=== PATIENT | male | born 1965 | race Caucasian/White ===

== ENCOUNTER 2018-09-23 15:41 | Outpatient (CLI) | payer BC ==
--- NOTE | 2018-09-23 19:00 | MRI ---
MRI LEFT SHOULDER WITHOUT CONTRAST: 09/23/18 HISTORY: M25.512, left shoulder pain. COMPARISON: None. FINDINGS: BICEPS TENDON: Extra-articular biceps tendon is intact. Mild intra-articular tendinosis. LABRUM: There is tear throughout the superior labrum is seen to the posterior superior and posterior labrum a s well as the posterior inferior labrum. The anterior inferior labrum is nothing but scar tissue and osteophyte formation. CARTILAGE: High grade chondral thinning throughout the glenoid as well as multifocal high grade cartilage frayin g throughout the humeral head. ROTATOR CUFF: High grade tendinosis infraspinatus tendon with undersurface partial tearing. No full thickness perfo ration. Mild undersurface partial tearing 25 to 30% of the supraspinatus. Mild tendinosis subscapular is. BONES: There are large osteophyte formation at the glenoid as well as the humeral head/neck. There is an os acromiale, type B with persistent synchondrosis within the preacromion and mesoacromion. There is abnormal sclerosis and edema in the synchondrosis. SOFT TISSUES: There is loss of normal subcoracoid fat and synovitis in the rotator interval. There is also thickeni ng axillary pouch inferior glenohumeral ligament. There is a small subacromial subdeltoid bursa effus ion. MUSCLES: The muscle signal and bulk is normal. IMPRESSION: 1. Extensive tearing throughout the superior as well as posterior and posterior inferior labrum. The anterior inferior labrum is predominantly scar as well as osteophyte formation. 2. 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 3. Loss of normal subcoracoid fat with synovitis of rotator interval as well as thickening of th e axillary pouch can be seen with capsulitis in the correct clinical setting. 4. Mild undersurface partial tearing less than 30% of the supraspinatus tendon without a full th ickness perforation. 5. The muscle bulk is normal. There is some interstitial delamination of the infraspinatus tendo n with myotendinous junction cyst. POS: CET
== END 2018-09-23 15:42 | disposition home or self-care (01) ==
LOC: SCSMRI 15:41
PROVIDERS: ATTEND Orthopaedic Surgery
DX: M25.512 Pain in left shoulder (principal); S43.402A Unspecified sprain of left shoulder joint, initial encounter; M75.102 Unspecified rotator cuff tear or rupture of left shoulder, not specified as traumatic; M67.814 Other specified disorders of tendon, left shoulder; M65.812 Other synovitis and tenosynovitis, left shoulder; M25.712 Osteophyte, left shoulder; R60.0 Localized edema

== ENCOUNTER 2020-04-30 06:10 | Day surgery (SDC) | payer BC ==
[2020-04-30] MEDS ORDERED: Bupivacaine PF 0.5% 30 ML VIAL ONE (06:19)
[2020-04-30] MEDS ORDERED: Betamet Acet/Betamet Na Ph 30 MG/5 ML VIAL ONE (06:19)
[2020-04-30] MEDS ORDERED: Bacitracin Zinc Ointment 30 gm TUBE ONE (06:19)
[2020-04-30] MEDS ORDERED: Sodium Chloride 0.9% 10 ML ONE (06:19)
[2020-04-30] MEDS ORDERED: Midazolam HCl 2 mg/2 ml Vial ONE ×2 (07:12→07:33)
[2020-04-30] MEDS ORDERED: Fentanyl 100 MCG/2 ML VIAL ONE ×2 (07:12→07:33)
[2020-04-30 07:52] LABS: Bacteria/HPF None Seen HPF (None Seen); Bilirubin Negative (Negative); Blood, Urine Negative (Negative); Clarity Clear (Clear); Glucose, Urine (Dipstick) Normal (Negative); Ketone, Urine Negative (Negative); Leukocyte Negative Leu/uL (Negative); Nitrite Negative (Negative); Protein, Urine (Dipstick) 10 mg/dL (Neg-Trace); RBC/HPF 0-3 HPF (0-3); Specific Gravity, Urine 1.029 (1.002-1.036); Squamous Epithelial None Seen HPF (0-3); Urobilinogen Normal mg/dL (Less than 2); WBC/HPF 0-3 HPF (0-3); pH, Urine 5.5 (5.0-9.0)
[2020-04-30] MEDS ORDERED: Bupivacaine HCl 0.5%/Epinephrine 1:200,000/PF 30 ml Vial ONE (09:54)
[2020-04-30] MEDS ORDERED: PROPOFOL 200 MG/20 ML VIAL ONE (09:54)
[2020-04-30] MEDS ORDERED: Lidocaine 1% PF 5 ML VIAL ONE (09:54)
[2020-04-30] MEDS ORDERED: Ondansetron PF 4 MG/2 ML Vial ONE (09:54)
[2020-04-30] MEDS ORDERED: Dexamethasone 20 MG/5 ML VIAL ONE (09:54)
[2020-04-30] MEDS ORDERED: Acetaminophen 500 MG TAB ONE (11:54)
--- NOTE | 2020-04-30 12:50 | RAD ---
EXAM: 3 views of the right hand COMPARISON: None HISTORY: Arthroplasty of the middle finger FINDINGS/IMPRESSION: Limited intraoperative fluoroscopic views of the right hand shows lucency of the region of the middle finger metacarpophalangeal joint which may be from an arthroplasty.
--- NOTE | 2020-05-01 10:52 | OP ---
DATE OF PROCEDURE: 04/30/2020 PREOPERATIVE DIAGNOSES: 1. Right middle finger A1 aramis triggering. 2. Right middle finger osteoarthritis. 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 A very tight A1 aramis with early ganglion formation. PROCEDURES PERFORMED: 1. Right middle finger A1 aramis release. 2. Right middle finger metacarpophalangeal joint arthroplasty with silastic implant, Janes [place] Martin type, size 5. ESTIMATED BLOOD LOSS: 10 mL. TOURNIQUET TIME: Six to seven minutes. ANESTHESIA: General LMA augmented by preoperative one day single block of the upper extremity. DESCRIPTION OF PROCEDURE: After successful anesthesia listed above, the limb prepped and draped. We obtained a time-out appropriately and consent was done for the correct side. The patient then had the limb prepped and draped. Time-out had been confirmed. We then outlined an incision along his MP joint flexion crease for the long finger and a zigzag incision going radial to the MP joint and the metacarpal head, centered on this joint 3 cm on either side. The patient had the palmar incision developed first with the tourniquet inflated and carried through skin and subcutaneous tissue. Identified the neurovascular bundle, retracted from the center of field had revealed very thick A1 aramis with early 3 mm ganglion. We excised the ganglion as part of the release of the A1 aramis. We inspected the volar plate, which was intact with no ganglion or masses. I placed 2 mL Celestone here and closed this wound with interrupted 4-0 nylon in a simple pattern. We then approached the metacarpophalangeal joint through this incision and carried through skin and subcutaneous tissue. Dilated soft tissue off the radial sagittal band and then released it, tagging it, leaving a 2 mm edge still attached to the tendon for repair. We also released the proximal half of the intrinsics. We then performed capsulotomy with partial capsulectomy, exposed the collaterals and then flexed the joint completely to 110 degrees. Protecting the collaterals, we made a box type cut with a saw in frontal and sagittal plane, removing the entire chondral surface and then because there was such osteophytes around, the collaterals were released and completely removed the osteophytes and tagged the collaterals with 3-0 Prolene using Landry suture technique. We had removed the entire chondral surface including the posterior portion of the base of the metacarpal head, we then made a 2 mm chondral cut on the proximal phalanx, removing down to some soft bone. Used a og to establish the subcortical bone surface in the center of the proximal phalanx base and then began broaching. We started with a broach, used C-arm, satisfactory in the center. Once we did this, we then progressively broached all the way from a size 2 to a size 5, which was a good fit for this patient. We then placed the trial prosthesis and it was very stable and at 100 degrees of flexion, it did not dislodge. The patient had the permanent size 5 brought into the field, soaked in normal saline for 2 minutes, and then placed. It had the same stability. Before placing that, we had drilled the drill holes to reattach the collaterals back to bone using the 3-0 Prolene and this was accomplished with the finger in neutral position medial and lateral and at 45 degrees of flexion. The patient then had easily 110 degrees of flexion and full extension passively. Radiographs confirmed this and the C-arm left the area. We then covered the soft tissue around metacarpal head with a small amount of capsule, closed the retinaculum with an interrupted Prolene in a [id number] pattern as well as the extensor castillo. Then, there was no subluxation of the extensor mechanism. We obtained hemostasis with tourniquet deflated, closed subcutaneous tissue with a running 4-0 Monocryl and then a 4-0 nylon interrupted simple pattern. The patient left the operating room with a bulky dressing, and digits in extension of MP joint. No evidence of anesthetic or operative complication with a pink digit. Job ID: [id number]
== END 2020-04-30 12:45 | disposition home or self-care (01) ==
LOC: SDC 06:10
PROVIDERS: ATTEND Orthopaedic Surgery Hand Surgery
PROC: 0LN70ZZ Release Right Hand Tendon, Open Approach (ICD-10-PCS; principal; 2020-04-30)
PROC: 0RRW0JZ Replacement of Right Finger Phalangeal Joint with Synthetic Substitute, Open Approach (ICD-10-PCS; principal; 2020-04-30)
DX: M19.041 Primary osteoarthritis, right hand (principal); M65.331 Trigger finger, right middle finger; K21.9 Gastro-esophageal reflux disease without esophagitis; Z79.1 Long term (current) use of non-steroidal anti-inflammatories (NSAID); Z79.899 Other long term (current) drug therapy; Z88.6 Allergy status to analgesic agent
CPT/HCPCS: 76000; 81001; C1776; J0670; J0690; J0702; J1100; J2250; J2405; J2704; J3010; J3490; S0020

== ENCOUNTER 2024-08-20 17:42 | Inpatient (IN) | payer BC ==
[2024-08-20] MEDS ORDERED: Acetaminophen 325 MG TAB PO PRN (18:37)
[2024-08-20] MEDS: Sodium Chloride 0.9% 1,000 ML IV SCH (20:05)
[2024-08-20] MEDS: Dicyclomine 20 MG TAB PO SCH (20:05)
[2024-08-20 20:36] VITALS: BMI 29.7
[2024-08-20] MEDS: Acetaminophen 500 MG TAB PO SCH (23:13)
[2024-08-21] MEDS: Lidocaine 2% Viscous Solution 20 ML, Aluminum & Magnesium Hydroxide 30 ML, Donnatal Eli... SSW SCH (00:13)
[2024-08-21] MEDS: metroNIDAZOLE 500 MG in Premix 1 BAG IVPB SCH (00:18)
[2024-08-21] MEDS: Ciprofloxacin Lactate/D5W 400 MG in Premix 1 BAG IVPB SCH (04:46)
[2024-08-21 05:17] LABS: Hematocrit 44.9 % (42.0-52.0); Hemoglobin 15.4 g/dL (14.0-18.0); Mean Corpuscular HGB CONC 34.3 g/dL (32.0-36.0); Mean Corpuscular Hemoglobin 31.5 pg (27.0-31.0); Mean Corpuscular Volume 91.8 fL (78.0-98.0); Mean Platelet Volume 9.9 fL (7.4-10.4); Platelet Count 147 10x3/uL (130-400); RBC Distribution Width 17.8 % (11.5-14.5); Red Blood Cell (RBC) Count 4.89 mill/uL (4.70-6.10)
[2024-08-21 05:31] LABS: Anion Gap 14 mmol/L (10-20); BUN (Urea Nitrogen) 16 mg/dL (8.4-25.7); Calc. Creatinine Clearance 136 mL/min (70-130); Calcium 8.2 mg/dL (7.8-10.44); Carbon Dioxide 22 mmol/L (22-29); Chloride 103 mmol/L (98-107); Estimated GFR 99; Glucose 115 mg/dL (70-105); Magnesium 1.7 mg/dL (1.6-2.6); Phosphorus 3.2 mg/dL (2.3-4.7); Potassium 3.2 mmol/L (3.5-5.1); Sodium 136 mmol/L (136-145)
[2024-08-21 05:48] LABS: Band 32 % (5-11); Eosinophils 1 % (0-10); Large Platelets 6.6 % (0-5); Lymphocytes 20 % (21-51); Monocytes 31 % (0-10); Myelocyte 1 % (0-0); Neutrophil 9 % (42-75); Platelet Adequacy Comment Platelets Normal; Polychromasia SLIGHT = 2-3 cells HPF (0-2); Promyelocytes 4 % (0-0); Reactive Lymphocytes 2 % (0-10)
[2024-08-21] MEDS: Glycopyrrolate 0.4 MG/ 2 ML VIAL SLOW IVP SCH ×2 (06:29→22:17)
[2024-08-21] MEDS: Levothyroxine Sodium 100 MCG TAB PO SCH (06:31)
[2024-08-21] MEDS: Ondansetron ODT 4 MG TAB PO PRN (06:35)
[2024-08-21] MEDS: Enoxaparin 40 MG (0.4 mL) SYRINGE SC SCH (08:38)
[2024-08-21] MEDS: Pancrelipase DR 12,000 1 CAP PO SCH (08:38)
[2024-08-21] MEDS: Metamucil PACK PO SCH (08:38)
[2024-08-21] MEDS: Multivitamin W/ Minerals 1 TAB PO SCH (08:39)
[2024-08-21] MEDS: Famotidine/PF 20 mg/2ml Vial SLOW IVP SCH (08:39)
[2024-08-21] MEDS: Ascorbic Acid 500 mg Chewable Tablet PO SCH (08:39)
[2024-08-21] MEDS: Cyanocobalamin (Vitamin B-12) 1,000 MCG TAB PO SCH (08:39)
[2024-08-21] MEDS: Potassium Chloride 20 MEQ TAB PO SCH (09:38)
[2024-08-21 12:24] LABS: Influenza A by NAA Not Detected (NotDetected); Influenza B by NAA Not Detected (NotDetected); SARS-CoV-2 NAA Rapid Test Not Detected (NotDetected)
[2024-08-21 12:56] LABS: Campy jejuni + coli by PCR Negative (Negative); STEC Shiga Toxin 1+2 Negative (Negative); Salmonella spp. by PCR Negative (Negative); Shigella spp + EIEC by PCR Negative (Negative)
[2024-08-21 14:55] VITALS: BMI 29.7
[2024-08-21] MEDS: Dicyclomine 10 MG CAP PO SCH (16:36)
[2024-08-21] MEDS: Ondansetron PF 4 MG/2 ML Vial IVP PRN (18:36)
[2024-08-21] MEDS: Tamsulosin HCl 0.4 MG CAP PO SCH (20:31)
[2024-08-21] MEDS ORDERED: Melatonin 3 MG TAB PO PRN (21:38)
[2024-08-22 05:15] LABS: Hematocrit 40.3 % (42.0-52.0); Hemoglobin 14.2 g/dL (14.0-18.0); Mean Corpuscular HGB CONC 35.2 g/dL (32.0-36.0); Mean Corpuscular Hemoglobin 32.5 pg (27.0-31.0); Mean Corpuscular Volume 92.2 fL (78.0-98.0); Mean Platelet Volume 9.8 fL (7.4-10.4); Platelet Count 142 10x3/uL (130-400); RBC Distribution Width 17.2 % (11.5-14.5); Red Blood Cell (RBC) Count 4.37 mill/uL (4.70-6.10)
[2024-08-22 05:42] LABS: Band 7 % (5-11); Lymphocytes 21 % (21-51); Monocytes 2 % (0-10); Neutrophil 65 % (42-75); Plasma Cells 0 % (0-0); Platelet Adequacy Comment Appears Adequate; Reactive Lymphocytes 5 % (0-10); Total Cell Count 100
[2024-08-22 05:47] LABS: Anion Gap 12 mmol/L (10-20); BUN (Urea Nitrogen) 10 mg/dL (8.4-25.7); Calc. Creatinine Clearance 154 mL/min (70-130); Carbon Dioxide 21 mmol/L (22-29); Chloride 104 mmol/L (98-107); Estimated GFR 103; Glucose 101 mg/dL (70-105); Potassium 3.2 mmol/L (3.5-5.1); Sodium 134 mmol/L (136-145)
[2024-08-22] MEDS: Magnesium 2 GM/50 ML(in water) 2 GM in Premix 1 BAG IVPB SCH (06:06)
[2024-08-22] MEDS: Potassium Chloride 20 MEQ in Premix 1 BAG IVPB SCH (06:36)
[2024-08-22 07:16] LABS: Bacteria/HPF None Seen HPF (None Seen); Bilirubin Negative (Negative); Blood, Urine Negative (Negative); CAUTI Indications for Culture Dysuria,urgency,freq; Clarity Clear (Clear); Glucose, Urine (Dipstick) Normal (Negative); Ketone, Urine Negative (Negative); Leukocyte Negative Leu/uL (Negative); Nitrite Negative (Negative); Protein, Urine (Dipstick) 20 mg/dL (Neg-Trace); RBC/HPF 0-3 HPF (0-3); Squamous Epithelial 0-3 HPF (0-3); Urobilinogen Normal mg/dL (Less than 2); WBC/HPF 0-3 HPF (0-3); pH, Urine 5.5 (5.0-9.0)
[2024-08-22 07:18] LABS: Specific Gravity, Urine 1.056 (1.002-1.036)
[2024-08-22 07:19] LABS: Urine Culture Reflex No No
[2024-08-22] MEDS: Potassium Chloride 40 MEQ in Sodium Chloride 0.9% 250 ML 250 ML IVPB SCH (08:26)
[2024-08-22] MEDS: Potassium Chloride 20 MEQ TAB PO SCH ×2 (08:54→16:18)
[2024-08-22] MEDS: Lidocaine 4% Topical Sol 50 ML BOT TOP SCH (09:53)
[2024-08-22] MEDS: HYDROcodone/Acetaminophen 5/325 mg Tablet PO PRN (10:50)
[2024-08-22] MEDS: Glycopyrrolate 0.4 MG/ 2 ML VIAL SLOW IVP PRN (12:25)
[2024-08-22] MEDS: Lactated Ringer's 1,000 ML IV SCH (15:52)
[2024-08-22] MEDS: Famotidine/PF 20 mg/2ml Vial SLOW IVP SCH (20:22)
[2024-08-23 05:32] LABS: Hemoglobin 13.8 g/dL (14.0-18.0); Mean Corpuscular HGB CONC 35.4 g/dL (32.0-36.0); Mean Corpuscular Hemoglobin 32.2 pg (27.0-31.0); Mean Corpuscular Volume 90.9 fL (78.0-98.0); Mean Platelet Volume 9.1 fL (7.4-10.4); Platelet Count 129 10x3/uL (130-400); RBC Distribution Width 17.1 % (11.5-14.5); Red Blood Cell (RBC) Count 4.29 mill/uL (4.70-6.10)
[2024-08-23 05:46] LABS: ALT (SGPT) 14 U/L (8-55); AST (SGOT) 14 U/L (5-34); Albumin 2.7 g/dL (3.5-5.0); Alkaline Phosphatase 54 U/L (40-110); Anion Gap 10 mmol/L (10-20); BUN (Urea Nitrogen) 7 mg/dL (8.4-25.7); Bilirubin, Total 1.1 mg/dL (0.2-1.2); Calc. Creatinine Clearance 167 mL/min (70-130); Calcium 7.9 mg/dL (7.8-10.44); Carbon Dioxide 24 mmol/L (22-29); Chloride 103 mmol/L (98-107); Estimated GFR 105; Globulin 2.6 g/dL (2.4-3.5); Glucose 98 mg/dL (70-105); Potassium 3.7 mmol/L (3.5-5.1); Protein, Total 5.3 g/dL (6.0-8.3); Sodium 133 mmol/L (136-145)
[2024-08-23 06:18] LABS: Band 31 % (5-11); Eosinophils 3 % (0-10); Lymphocytes 21 % (21-51); Metamyelocyte 1 % (0-0); Monocytes 19 % (0-10); Neutrophil 24 % (42-75); Platelet Adequacy Comment Platelets Normal; Polychromasia SLIGHT = 2-3 cells HPF (0-2); Reactive Lymphocytes 2 % (0-10); Smudge Cells 12.7 %
[2024-08-23] MEDS: Dicyclomine 10 MG CAP PO PRN (09:10)
[2024-08-23] MEDS: HYDROcodone/Acetaminophen 5/325 mg Tablet PO PRN (12:17)
[2024-08-23] MEDS: Loperamide HCl 2 MG CAP PO SCH (16:52)
[2024-08-23] MEDS ORDERED: Preparation H Ointment 57 gram tube TOP PRN (21:00)
[2024-08-24 04:59] LABS: Hematocrit 39.2 % (42.0-52.0); Hemoglobin 13.6 g/dL (14.0-18.0); Mean Corpuscular HGB CONC 34.7 g/dL (32.0-36.0); Mean Corpuscular Hemoglobin 31.9 pg (27.0-31.0); Mean Corpuscular Volume 91.8 fL (78.0-98.0); Mean Platelet Volume 9.3 fL (7.4-10.4); Platelet Count 136 10x3/uL (130-400); RBC Distribution Width 16.9 % (11.5-14.5); Red Blood Cell (RBC) Count 4.27 mill/uL (4.70-6.10)
[2024-08-24 05:09] LABS: ALT (SGPT) 14 U/L (8-55); AST (SGOT) 17 U/L (5-34); Albumin 2.7 g/dL (3.5-5.0); Alkaline Phosphatase 56 U/L (40-110); Anion Gap 10 mmol/L (10-20); BUN (Urea Nitrogen) 4 mg/dL (8.4-25.7); Bilirubin, Total 0.7 mg/dL (0.2-1.2); Calc. Creatinine Clearance 160 mL/min (70-130); Calcium 8.2 mg/dL (7.8-10.44); Carbon Dioxide 24 mmol/L (22-29); Chloride 104 mmol/L (98-107); Estimated GFR 104; Globulin 2.6 g/dL (2.4-3.5); Glucose 101 mg/dL (70-105); Potassium 3.3 mmol/L (3.5-5.1); Protein, Total 5.3 g/dL (6.0-8.3); Sodium 135 mmol/L (136-145)
[2024-08-24 05:26] LABS: Band 18 % (5-11); Eosinophils 10 % (0-10); Large Platelets 4.9 % (0-5); Lymphocytes 28 % (21-51); Monocytes 14 % (0-10); Myelocyte 1 % (0-0); Neutrophil 25 % (42-75); Platelet Adequacy Comment Platelets Normal; Polychromasia SLIGHT = 2-3 cells HPF (0-2); Reactive Lymphocytes 3 % (0-10)
[2024-08-24] MEDS: Loperamide HCl 2 MG CAP PO SCH (09:05)
[2024-08-24] MEDS: Simethicone Chewable 80 MG TAB PO PRN (09:06)
[2024-08-24] MEDS ORDERED: Diphenoxylate HCl/Atropine Tablet PO PRN (10:15)
[2024-08-24] MEDS: Diphenoxylate HCl/Atropine Tablet PO SCH (11:13)
[2024-08-24 15:45] VITALS: BP 130/89; TEMP 98.3
== END 2024-08-24 15:15 | disposition home or self-care (01) | DRG 394 ==
LOC: MSONC 17:42 → OBSVTOIN 08-21 12:13
PROVIDERS: ADMIT Family Medicine; ATTEND Family Medicine
DX: K52.1 Toxic gastroenteritis and colitis (principal); C18.4 Malignant neoplasm of transverse colon; T45.1X5A Adverse effect of antineoplastic and immunosuppressive drugs, initial encounter; E03.9 Hypothyroidism, unspecified; N40.0 Benign prostatic hyperplasia without lower urinary tract symptoms; E78.5 Hyperlipidemia, unspecified; M19.90 Unspecified osteoarthritis, unspecified site; Z88.8 Allergy status to other drugs, medicaments and biological substances; Z79.899 Other long term (current) drug therapy; E86.0 Dehydration; K21.9 Gastro-esophageal reflux disease without esophagitis; M06.9 Rheumatoid arthritis, unspecified; Z98.890 Other specified postprocedural states; Z87.891 Personal history of nicotine dependence
CPT/HCPCS: 36415; 74174; 74177; 80048; 80053; 81001; 82247; 83605; 83630; 83690; 83735; 84100; 84145; 85025; 87040; 87324; 87328; 87329; 87449; 87505; 93005; 96360; 96374; 96375; J0744; J1642; J1650; J2405; J3475; J3480; J3490; J7030; J7050; J7120; Q0162; Q9967